=== PATIENT | male | born 1985 | race Caucasian/White ===

== ENCOUNTER 2020-04-09 03:35 | Emergency (ER) | payer SELFPAY ==
[~2020-04-09] VITALS: Ht 182.9 cm; Wt 113.4 kg
[2020-04-09 05:23] VITALS: BP 139/91
--- NOTE | 2020-04-09 05:23 | NUR ---
PT RESTING IN BED WITH FAMILY AT PT SIDE. PT A/O X4 AND CONECTED TO MONITOR. [employer] WILL CONTINUE TO MONITOR PT VITALS
[2020-04-09 05:30] LABS: BASOPHILS # (AUTO) 0.04 x10^3/uL (0-0.1); BASOPHILS % (AUTO) 0 % (0-1); EOSINOPHILS # (AUTO) 0.12 x10^3/uL (0-0.4); EOSINOPHILS % (AUTO) 1 % (1-7); LYMPHOCYTES # (AUTO) 2.03 x10^3/uL (1-3.4); LYMPHOCYTES % (AUTO) 20 % (22-44); MD NO; MEAN CORPUSCULAR HGB CONC 33.9 g/dL (33.2-36.2); MEAN CORPUSCULAR VOLUME 91.3 fL (81-97); MONOCYTES # (AUTO) 0.77 x10^3/uL (0.2-0.8); MONOCYTES % (AUTO) 8 % (2-9); NEUTROPHILS # (AUTO) 7.04 x10^3/uL (1.8-6.8); NEUTROPHILS % (AUTO) 70 % (42-75); PLATELET COUNT 262 x10^3/uL (130-400); RED BLOOD COUNT 5.09 x10^6/uL (4.38-5.82); RED CELL DISTRIBUTION WIDTH 13.7 % (9.4-14.8)
[2020-04-09 05:43] LABS: ALANINE AMINOTRANSFERASE 82 U/L (12-78); ALBUMIN 3.7 g/dL (3.4-5.0); ANION GAP 11 mmol/L (5-15); CALCIUM 8.5 mg/dL (8.5-10.1); CHLORIDE 103 mmol/L (98-107)
[2020-04-09 05:53] LABS: ALKALINE PHOSPHATASE 128 U/L (45-117); BILIRUBIN,TOTAL 0.4 mg/dL (0.2-1.0); CREATININE 0.87 mg/dL (0.7-1.3); FREE T4 (FREE THYROXINE) 0.91 ng/dL (0.76-1.46); TOTAL PROTEIN 7.5 g/dL (6.4-8.2)
== END 2020-04-09 06:46 | disposition home or self-care (01) ==
LOC: ED 06:40
DX: R00.2 Palpitations (principal); R07.9 Chest pain, unspecified; R06.02 Shortness of breath; R00.0 Tachycardia, unspecified
CPT/HCPCS: 36415; 71045; 80053; 84439; 84443; 85025; 93005; 99285